=== PATIENT | female | born 1995 | race Caucasian/White ===

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

== ENCOUNTER → 2019-12-13 | Outpatient (CLI) | payer BC ==
--- NOTE | 2019-12-13 16:14 | Diagnostic Imaging Report ---
EXAMINATION: Abdomen 1 view. HISTORY: Flank pain. COMPARISON: None available. FINDINGS: The bowel gas pattern is normal. No stones are seen over the suspected location of the kidneys or ureters. No free air. IMPRESSION: No dilated bowel or stone is seen. Dictated by: Dictated on workstation # [id number]
== END ==
LOC: RAD 15:27
PROVIDERS: ATTEND Nurse Practitioner Family
DX: R10.2 Pelvic and perineal pain (principal); M54.9 Dorsalgia, unspecified
CPT/HCPCS: 74018

== ENCOUNTER → 2019-12-14 | Outpatient (CLI) | payer BC ==
--- NOTE | 2019-12-14 11:55 | Diagnostic Imaging Report ---
INDICATION: Abdominal pain. PROCEDURE: Ultrasound abdomen complete. TECHNIQUE: Multiple real-time grayscale images were obtained of the abdomen in various projections. Liver is normal in size 16.4 cm. No discrete liver mass is detected. The portal vein is patent and shows normal direction of flow. Gallbladder is without stones or sludge. No wall thickening or biliary duct dilatation is seen. Pancreas is obscured. Spleen is normal in size at 7.8 cm. Aorta is nonaneurysmal. IVC is patent. Both right and left kidneys are unremarkable. No calculi or hydronephrosis is detected. There is no ascites. IMPRESSION: Unremarkable abdominal ultrasound. Dictated by: Dictated on workstation # [id number]
== END ==
LOC: RAD 10:37
PROVIDERS: ATTEND Nurse Practitioner Family
DX: R10.11 Right upper quadrant pain (principal); Z86.19 Personal history of other infectious and parasitic diseases
CPT/HCPCS: 76700